=== PATIENT | female | born 1990 | race Caucasian/White ===

== ENCOUNTER 2019-01-07 08:15 | Emergency (ER) | payer BC, OTHER ==
[2019-01-07] MEDS ORDERED: Dexamethasone 10 MG/ML SDV IM ONE (08:57)
[2019-01-07] MEDS ORDERED: Ibuprofen 800 MG Tab PO ONE (08:59)
--- NOTE | 2019-01-07 09:00 | EDM.PDOC ---
ED HPI GENERAL MEDICAL PROBLEM - General Chief Complaint: ENT Problem Stated Complaint: STREP THROAT Time Seen by Provider: 01/07/19 08:54 Source of Information: Reports: Patient History Limitations: Reports: No Limitations - History of Present Illness INITIAL COMMENTS - FREE TEXT/NARRATIVE: History of present illness: []Patient started having a sore throat with chills yesterday she does not feel like she's having fevers but her throat is painful that she is having difficulty swallowing. She denies any shortness of breath, cough, sinus drainage or ear pain. Review of systems: As per history of present illness and below otherwise all systems reviewed and negative. Past medical history: As per history of present illness and as reviewed below otherwise noncontributory. Surgical history: As per history of present illness and as reviewed below otherwise noncontributory. Social history: No reported history of drug or alcohol abuse. Family history: As per history of present illness and as reviewed below otherwise noncontributory. Physical exam: General: Well developed, well nourished in NAD HEENT: Atraumatic, normocephalic, pupils reactive, negative for conjunctival pallor or scleral icterus, mucous membranes moist, throat history of pharynx with erythema, edema no exudate seen, neck supple, nontender, trachea midline. No stridor no sinus tenderness to palpation Lungs: Clear to auscultation, breath sounds equal bilaterally, chest nontender. Negative for wheezing or rhonchi Heart: S1S2, regular, negative for clicks, rubs, or JVD. Abdomen: NABS, Soft, nondistended, nontender. Negative for masses or hepatosplenomegaly. Negative for costovertebral tenderness. Pelvis: Stable nontender. Genitourinary: Deferred. Rectal: Deferred. Extremities: Atraumatic, negative for cords or calf pain. Neurovascular unremarkable. Neuro: Awake, alert, oriented. Cranial nerves II through XII unremarkable. Cerebellum unremarkable. Motor and sensory unremarkable throughout. Exam nonfocal. Skin:warm and dry Diagnostics: Rapid Strep Therapeutics: Decadron, ibuprofen ED Course: Patient had a vasovagal reaction after the injection of Decadron given Zofran Impression: Strep positive pharyngitis Prescriptions: Zithromax, Lortab elixir Plan: Take meds as directed, follow up with your primary care physician, return to ER if symptoms worsen or change. Definitive disposition and diagnosis as appropriate pending reevaluation and review of above. Throat Pain Score (Numeric/FACES): 7 - Related Data Allergies Allergy/AdvReac Type Severity Reaction Status Date / Time amoxicillin [From Augmentin] Allergy Nausea and Verified 01/07/19 08:49 Vomiting clavulanic acid Allergy Nausea and Verified 01/07/19 08:49 [From Augmentin] Vomiting gluten Allergy Diarrhea Verified 01/07/19 08:49 Sulfa (Sulfonamide Allergy Headache Verified 01/07/19 08:49 Antibiotics) Home Meds: Home Meds Citalopram [Citalopram HBr] 20 mg DAILY 01/28/14 [History] Azithromycin [Zithromax] 250 mg PO DAILY #6 tab 01/07/19 [Rx] Hydrocodone/Acetaminophen [Lortab 10 mg-300 mg/15 ml Elxr] 10 ml PO Q4HR PRN # 400 solution 01/07/19 [Rx] Past Medical History - Past Health History Medical/Surgical History: Denies Medical/Surgical History - Past Surgical History HEENT Surgical History: Reports: Adenoidectomy, Tonsillectomy Social & Family History - Family History Family Medical History: Noncontributory - Tobacco Use Smoking Status *Q: Never Smoker - Recreational Drug Use Recreational Drug Use: No ED ROS ENT - Review of Systems Review Of Systems: See Below ED EXAM, ENT - Physical Exam Exam: See Below Course - Vital Signs Last Recorded V/S: Last Vital Signs Temp 97.7 F 01/07/19 08:46 Pulse 120 H 01/07/19 08:46 Resp 18 01/07/19 08:46 BP 99/64 01/07/19 08:46 Pulse Ox 96 01/07/19 08:46 - Orders/Labs/Meds Meds: Medications Discontinued Medications Generic Name Dose Route Start Last Admin Trade Name Freq PRN Reason Stop Dose Admin Dexamethasone 10 mg 01/07/19 08:57 01/07/19 09:12 Dexamethasone IM 01/07/19 08:58 10 mg ONETIME ONE Administration Ibuprofen 800 mg 01/07/19 08:59 01/07/19 09:12 Motrin PO 01/07/19 09:00 800 mg ONETIME ONE Administration Ondansetron HCl 4 mg 01/07/19 09:14 01/07/19 09:16 Zofran Odt PO 01/07/19 09:15 4 mg ONETIME ONE Administration Departure - Departure Time of Disposition: 09:21 Disposition: Home, Self-Care 01 Condition: Good Clinical Impression: Strep throat - Discharge Information *PRESCRIPTION DRUG MONITORING PROGRAM REVIEWED*: No *COPY OF PRESCRIPTION DRUG MONITORING REPORT IN PATIENT FATIMAH: No Prescriptions: Hydrocodone/Acetaminophen [Lortab 10 mg-300 mg/15 ml Elxr] 10 ml PO Q4HR PRN # 400 solution PRN Reason: Pain Azithromycin [Zithromax] 250 mg PO DAILY #6 tab Referrals: Phuong Tran PA [Primary Care Provider] - Forms: ED Department Discharge Additional Instructions: The following information is given to patients seen in the emergency department who are being discharged to home. This information is to outline your options for follow-up care. We provide all patients seen in our emergency department with a follow-up referral. The need for follow-up, as well as the timing and circumstances, are variable depending upon the specifics of your emergency department visit. If you don't have a primary care physician on staff, we will provide you with a referral. We always advise you to contact your personal physician following an emergency department visit to inform them of the circumstance of the visit and for follow-up with them and/or the need for any referrals to a consulting specialist. The emergency department will also refer you to a specialist when appropriate. This referral assures that you have the opportunity for follow-up care with a specialist. All of these measure are taken in an effort to provide you with optimal care, which includes your follow-up. Under all circumstances we always encourage you to contact your private physician who remains a resource for coordinating your care. When calling for follow-up care, please make the office aware that this follow-up is from your recent emergency room visit. If for any reason you are refused follow-up, please contact the [facility] Emergency Department at and asked to speak to the emergency department charge nurse. Take meds as directed, follow up with your primary care physician, return to ER if symptoms worsen or change. [facility] [address] [place] [id number]
[2019-01-07] MEDS ORDERED: Ondansetron 4 MG Tab.DIS PO ONE (09:14)
== END 2019-01-07 09:56 | disposition home or self-care (01) ==
LOC: MW.ED 08:15
DX: J02.0 Streptococcal pharyngitis (principal); Z88.0 Allergy status to penicillin; Z88.1 Allergy status to other antibiotic agents; Z88.2 Allergy status to sulfonamides; Z91.018 Allergy to other foods
CPT/HCPCS: 87880; 96372; 99283; A9270; J1100